=== PATIENT | female | born 1965 | race Caucasian/White ===

== ENCOUNTER 2016-04-12 08:17 | Emergency (ER) ==
[2016-04-12 08:27] VITALS: BP 157/75
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
--- NOTE | 2016-04-12 10:16 | Diag Imaging Result Document ---
PROCEDURE NAME: CERVICAL SPINE COMPLETE - 04/12/2016 CERVICAL SPINE AP AND LATERAL WITH OBLIQUES, 6 VIEWS: FINDINGS: There are moderate degenerative bone spurs in the mid and lower cervical spine. No precervical soft tissue swelling. No subluxation. IMPRESSION: Moderate degenerative changes.
== END 2016-04-12 09:59 | disposition home or self-care (01) ==
LOC: ED 08:17
DX: S16.1XXA Strain of muscle, fascia and tendon at neck level, initial encounter (principal); S23.3XXA Sprain of ligaments of thoracic spine, initial encounter; M54.2 Cervicalgia; V49.40XA Driver injured in collision with unspecified motor vehicles in traffic accident, initial encounter; Z79.899 Other long term (current) drug therapy
CPT/HCPCS: 72050